=== PATIENT | female | born 1930 | race Caucasian/White ===

== ENCOUNTER 2018-01-11 15:43 | Inpatient (IN) | payer OTHER ==
[~2018-01-11] VITALS: Ht 157 cm; Wt 59.6 kg
--- NOTE | ~2018-01-11 | 2DMMODE ---
[facility] [address] [place] [address] 2 D/M-MODE ECHOCARDIOGRAM Name: PATY MISTRY Room #: 217-P [facility] IN M.R.#: [id number] Admission: 01/11/18 Attend Phys: Fito Gaviria MD Discharge: Date of : 34 Date of Service: 01/12/18 1608 Report #: [id number] THIS REPORT FOR: //name// APPROVED REPORT Study performed: 01/12/2018 15:00:05 EXAM: Comprehensive 2D, Doppler, and color-flow Echocardiogram Patient Location: Bedside Room #: [facility] Status: routine BSA: 1.61 HR: 80 bpm BP: 92/45 mmHg Other Information Study Quality: Adequate Indications Atrial Fibrillation SVT 2D Dimensions RVDd: 27.29 mm LVEF(%): 67.49 (>50%) IVSd: 13.83 (7-11mm) LVOT Diam: 19.09 (18-24mm) LVDd: 27.75 mm PWd: 13.66 (7-11mm) Ascending Ao: 27.97 (22-36mm) LVDs: 17.76 (25-40mm) Aortic Root: 28.39 mm IVC: 14.00 mm Corbin's LVEF: 67.49 % Volumes Left Atrial Volume (Systole) Single Plane 4CH: 20.25 mL Single Plane 2CH: 22.53 mL LA ESV Index: 15.00 mL/m2 Aortic Valve AoV Peak Efren.: 1.62 m/s AO Peak Gr.: 10.54 mmHg LVOT Max P.41 mmHg LVOT Max V: 1.45 m/s NAVI Vmax: 2.56 cm2 Mitral Valve E/A Ratio: 0.5 MV Decel. Time: 178.87 ms [facility] [place] [place] [address] 2 D/M-MODE ECHOCARDIOGRAM Name: ZACH MISTRYMilton Nelson Room #: 217-P [facility] IN .R.#: [id number] Admission: 01/11/18 Attend Phys: Fito Gaviria MD Discharge: Date of : 34 Date of Service: 01/12/18 1608 Report #: [id number] MV E Max Efren.: 0.60 m/s MV A Efren.: 1.17 m/s MV PHT: 51.87 ms IVRT: 100.35 ms Pulmonary Valve PV Peak Efren.: 0.86 m/s PV Peak Gr.: 2.96 mmHg Tricuspid Valve TR Peak Efren.: 2.33 m/s RAP Estimate: 10.00 mmHg TR Peak Gr.: 21.69 mmHg PA Pressure: 32.00 mmHg Left Ventricle The left ventricle is normal size. Mild concentric left ventricular hypertrophy. The left ventricular systolic function is normal. The left ventricular ejection fraction is within the normal range. LVEF is 60-65%. Mild diastolic dysfunction is present (impaired relaxation pattern). Right Ventricle The right ventricle is normal size. The right ventricular systolic function is normal. Atria The left atrium size is normal. The right atrium size is normal. Aortic Valve The aortic valve is normal in structure. No aortic regurgitation is present. There is no aortic valvular stenosis. Mitral Valve The mitral valve is normal in structure. Trace mitral regurgitation. No evidence of mitral valve stenosis. Tricuspid Valve The tricuspid valve is normal in structure. Moderate tricuspid regurgitation. PAP is estimated at 32 mmHg. Pulmonic Valve The pulmonary valve is normal in structure. Trace pulmonic regurgitation. Great Vessels The aortic root is normal in size. IVC is normal in size and [facility] [address] [place] [address] 2 D/M-MODE ECHOCARDIOGRAM Name: PATY MISTRY Leslie Room #: 217-P [facility] IN M.R.#: [id number] Admission: 01/11/18 Attend Phys: Fito Gaviria MD Discharge: Date of : 34 Date of Service: 01/12/18 1608 Report #: [id number] collapses <50% with inspiration. Pericardium There is no pericardial effusion. <Conclusion> The left ventricle is normal size. LVEF is 60-65%. The aortic valve is normal in structure. The mitral valve is normal in structure. Trace mitral regurgitation. The tricuspid valve is normal in structure. Moderate tricuspid regurgitation. PAP is estimated at 32 mmHg. The pulmonary valve is normal in structure. Trace pulmonic regurgitation. There is no pericardial effusion. <ELECTRONICALLY SIGNED> By: Armaan Aragon MD 01/12/18 1608 1608 1608 Armaan Aragon MD /INF
--- NOTE | ~2018-01-11 | EKG ---
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1930 Requested By: Fito Gaviria Order Number: [id number] MD: uDsty Hunt Measurements Intervals [place] Rate: 179 P: 0 [place]: QRS: -65 QRSD: 113 T: 46 QT: 291 QTc: 503 Interpretive Statements Supraventricular tachycardia Incomplete RBBB and LAFB ST depression, probably rate related No previous ECG available for comparison Electronically Signed On 01-12-2018 17:15:47 CDT by Dusty Hunt [email or web address] <ELECTRONICALLY SIGNED> By: Dusty Hunt MD, [facility] 01/12/18 1715 06 Dusty Hunt MD, [facility] /EPI
--- NOTE | ~2018-01-11 | EKG ---
[address] [place] [address] ELECTROCARDIOGRAM REPORT Name: FIDELIAPATY [facility] M.[facility] [id number] Admission: 01/11/18 Attend Phys: Fito Gaviria MD Discharge: Date of : 34 Report #: [id number] THIS REPORT FOR: //name// 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
[2018-01-11 16:15] VITALS: BP 153/66
[2018-01-11] MEDS ORDERED: LISINOPRIL5 MG PO (16:31)
[2018-01-11] MEDS ORDERED: CARDIZEM CD240 MG PO (16:31)
[2018-01-11] MEDS ORDERED: METFORMIN HCL500 MG PO (16:33)
[2018-01-11] MEDS ORDERED: MIRALAX17 GM PO (16:33)
[2018-01-11 17:20] LABS: HEMATOCRIT 43.6 % (37.0-47.0); HEMOGLOBIN 15.2 gm/dL (12.0-15.0); MCH 31.3 pg (26.0-34.0); MCHC 34.9 g/dL (28.0-37.0); MCV 89.7 fL (80.0-100.0); RBC 4.86 mil/uL (4.20-5.00); RDW 12.2 % (10.5-14.5); WBC 11.2 thou/uL (4.0-11.0)
[2018-01-11 17:31] LABS: CALCIUM 8.1 mg/dL (8.5-10.1); CREATININE 0.8 mg/dL (0.6-1.0); POTASSIUM 3.9 mmol/L (3.5-5.1)
[2018-01-11 17:33] LABS: PROTIME 10.4 Seconds (9.3-11.4)
[2018-01-11 20:00] VITALS: BP 155/62
[2018-01-12] VITALS (8 sets, daily range): BP systolic 92–144; BP diastolic 45–74
[2018-01-12 06:33] LABS: HEMATOCRIT 39.9 % (37.0-47.0); HEMOGLOBIN 14.1 gm/dL (12.0-15.0); MCH 31.2 pg (26.0-34.0); MCHC 35.3 g/dL (28.0-37.0); MCV 88.5 fL (80.0-100.0); RBC 4.5 mil/uL (4.20-5.00); RDW 12.5 % (10.5-14.5)
[2018-01-12 06:50] LABS: CALCIUM 8.2 mg/dL (8.5-10.1); POTASSIUM 3.4 mmol/L (3.5-5.1)
[2018-01-12 17:35] LABS: ALBUMIN 2.7 g/dL (3.4-5.0); CALCIUM 7.9 mg/dL (8.5-10.1); MAGNESIUM 2.6 mg/dL (1.8-2.4); POTASSIUM 3.1 mmol/L (3.5-5.1); TOTAL BILIRUBIN 0.5 mg/dL (<0.1-1.0); TOTAL PROTEIN 6.4 g/dL (6.4-8.2)
[2018-01-13 04:06] VITALS: BP 117/52
[2018-01-13 07:44] VITALS: BP 147/71
[2018-01-13 11:22] VITALS: BP 146/75
[2018-01-13 15:25] VITALS: BP 146/72
[2018-01-13 20:05] VITALS: BP 146/77
[2018-01-14 04:45] VITALS: BP 137/60
[2018-01-14 07:37] VITALS: BP 143/56
[2018-01-14 08:37] LABS: HEMOGLOBIN 13.7 gm/dL (12.0-15.0); MCHC 35.2 g/dL (28.0-37.0); PLATELET COUNT 235 thou/uL (150-400); RBC 4.43 mil/uL (4.20-5.00); RDW 12.2 % (10.5-14.5); WBC 9.6 thou/uL (4.0-11.0)
[2018-01-14 08:45] LABS: CALCIUM 8.5 mg/dL (8.5-10.1); CREATININE 0.7 mg/dL (0.6-1.0); POTASSIUM 3.2 mmol/L (3.5-5.1)
[2018-01-14 11:27] VITALS: BP 139/61
[2018-01-14 13:06] LABS: ABSOLUTE NEUTROPHILS 7.4 thou/uL (1.4-8.2)
[2018-01-14 15:53] VITALS: BP 140/67
[2018-01-14 19:55] VITALS: BP 152/62
[2018-01-15] VITALS (11 sets, daily range): BP systolic 127–156; BP diastolic 51–77
[2018-01-15 08:00] LABS: HEMATOCRIT 37.1 % (37.0-47.0); HEMOGLOBIN 13.3 gm/dL (12.0-15.0); MCH 31.2 pg (26.0-34.0); MCHC 35.8 g/dL (28.0-37.0); MCV 87.2 fL (80.0-100.0); RBC 4.26 mil/uL (4.20-5.00); RDW 12.2 % (10.5-14.5); WBC 8.3 thou/uL (4.0-11.0)
[2018-01-15 08:06] LABS: CALCIUM 8.3 mg/dL (8.5-10.1); CREATININE 0.7 mg/dL (0.6-1.0)
[2018-01-15 08:08] LABS: POTASSIUM 2.8 mmol/L (3.5-5.1)
[2018-01-16 03:23] VITALS: BP 144/57
[2018-01-16 07:55] VITALS: BP 148/69
[2018-01-16 11:30] VITALS: BP 153/70
[2018-01-16 15:25] VITALS: BP 151/74
[2018-01-16 16:21] VITALS: BP 151/74
[2018-01-16 19:39] VITALS: BP 149/74
[2018-01-17 03:18] LABS: HEMATOCRIT 38.4 % (37.0-47.0); HEMOGLOBIN 13.1 gm/dL (12.0-15.0); MCH 30.7 pg (26.0-34.0); MCV 90.1 fL (80.0-100.0); RBC 4.26 mil/uL (4.20-5.00); RDW 12.1 % (10.5-14.5)
[2018-01-17 03:28] LABS: CALCIUM 8.3 mg/dL (8.5-10.1); CREATININE 0.6 mg/dL (0.6-1.0); POTASSIUM 3.1 mmol/L (3.5-5.1)
[2018-01-17 04:15] VITALS: BP 148/78
[2018-01-17 07:50] VITALS: BP 184/79
[2018-01-17 11:50] VITALS: BP 166/70
[2018-01-17 15:50] VITALS: BP 149/76
[2018-01-17 20:10] VITALS: BP 135/56
[2018-01-18 03:29] LABS: HEMATOCRIT 38.4 % (37.0-47.0); HEMOGLOBIN 13.4 gm/dL (12.0-15.0); MCH 31.1 pg (26.0-34.0); MCHC 34.9 g/dL (28.0-37.0); RBC 4.31 mil/uL (4.20-5.00); RDW 12.2 % (10.5-14.5); WBC 6.9 thou/uL (4.0-11.0)
[2018-01-18 03:41] LABS: CALCIUM 8.5 mg/dL (8.5-10.1); CREATININE 0.7 mg/dL (0.6-1.0); POTASSIUM 3.4 mmol/L (3.5-5.1)
[2018-01-18 04:28] VITALS: BP 141/55
[2018-01-18 08:15] VITALS: BP 138/68
[2018-01-18 11:30] VITALS: BP 145/67
[2018-01-18] MEDS ORDERED: AUGMENTIN 875-1 EACH PO (11:35)
[2018-01-18] MEDS ORDERED: VENTOLIN HFA 1818 GM INH (11:43)
[2018-01-18] MEDS ORDERED: ELIQUIS2.5 MG PO (11:43)
[2018-01-18 15:04] VITALS: BP 151/74
== END 2018-01-18 16:35 | disposition home health service (06) | DRG 335 ==
LOC: 4E 15:43 → 2N 01-12 13:25
PROVIDERS: Hospitalist; Surgery
PROC: 0DN84ZZ Release Small Intestine, Percutaneous Endoscopic Approach (ICD-10-PCS; principal; 2018-01-15)
DX: K56.600 Partial intestinal obstruction, unspecified as to cause (principal); J69.0 Pneumonitis due to inhalation of food and vomit; E43 Unspecified severe protein-calorie malnutrition; K63.89 Other specified diseases of intestine; I10 Essential (primary) hypertension; E87.6 Hypokalemia; Z60.2 Problems related to living alone; I48.0 Paroxysmal atrial fibrillation; E11.9 Type 2 diabetes mellitus without complications; Z79.899 Other long term (current) drug therapy; Z90.49 Acquired absence of other specified parts of digestive tract; Z90.710 Acquired absence of both cervix and uterus; Z68.24 Body mass index [BMI] 24.0-24.9, adult
CPT/HCPCS: 10783; 10797; 50010; 50101; 50249; 50386; 50455; 50555; 50962; 51489; 52265; 53307; 53310; 54118; 56462; 56526; 57092; 62110; 62900; 70005